=== PATIENT | male | born 1965 | race Caucasian/White ===

== ENCOUNTER 2023-09-07 18:04 | Emergency (ER) | payer BC, SELFPAY ==
[2023-09-07 18:17] VITALS: BP 137/90
[2023-09-07 18:32] LABS: % Basophils 0.4 % (0-2); % Eosinophils 2.1 % (0-6); % Immature Granulocytes 0.3 % (0-0.5); % Lymphocytes 40.3 % (20.5-51.1); % Monocytes 7.5 % (1.7-9.3); % Neutrophils 49.4 % (42.2-75.2); Absolute Eosinophils 0.2 10^3/uL (0-0.7); Absolute Monocytes 0.6 10^3/uL (0.1-0.6); Absolute Neutrophils 3.7 10^3/uL (1.4-6.5); Hematocrit 43.8 % (39.0-52.0); Mean Corp Hgb Conc. 36.5 g/dL (33.0-37.0); Mean Corpuscular Hgb 30.6 pg (27.0-31.0); Mean Corpuscular Volume 83.7 fL (80.0-94.0); Mean Platelet Volume 9.9 fL (7.4-10.4); Nucleated Red Blood Cells % 0 % (-); Platelet Count 263 10^3/uL (130-400); Red Blood Cell Count 5.23 10^6/uL (4.70-6.10); Red Cell Dist. Width 12.3 % (11.5-14.5); White Blood Cell Count 7.5 10^3/uL (4.8-10.8)
[2023-09-07 18:44] LABS: INR 1.07; PT 13.8 Sec (11.4-14.6)
[2023-09-07 18:52] LABS: ALT (SGPT) 35 U/L (0-50); AST (SGOT) 26 U/L (17-59); Albumin 4.7 g/dl (3.5-5.0); Alkaline Phosphatase 53 U/L (38-126); Blood Urea Nitrogen 17 mg/dl (9-20); Carbon Dioxide 25 mmol/L (22-30); Chloride 104 mmol/L (98-107); Glucose 105 mg/dl (70-99); Potassium 4.3 mmol/L (3.5-5.1); Sodium 139 mmol/L (135-145); Total Bilirubin 0.8 mg/dl (0.2-1.3); Total Protein 7.1 g/dl (6.3-8.2); eGFR > 60.00
[2023-09-07 18:58] LABS: Troponin I < 0.012 ng/ml
[2023-09-07 22:52] LABS: Troponin I < 0.012 ng/ml
[2023-09-07 23:26] VITALS: BP 126/91
--- NOTE | 2023-09-07 23:46 | ED.GENMED ---
History of Present Illness
General
Chief Complaint: Chest Pain
Source: patient
Exam Limitations: none
Time Seen by Provider: 09/07/23 23:28
Travel History
Have you had any contact with someone who has COVID-19?: No
Do you have any symptoms of coronavirus? Fever > 100 degrees, chills, cough, shortness of breath, sore throat, loss of taste or smell, muscle aches, or headache?: No
History of Present Illness
History of Present Illness:
See MDM
Past History
Past History
ED Past Medical History: Hypercholesterolemia
ED Past Surgical History: None
Social History
Tobacco: Smoker
Alcohol: Occasional
Family History
Family History: CAD
Phy Exam
Physical Exam
Physical Exam:
See MDM
Scores
Heart Score for Chest Pain Patients
STEMI patient?: No
History: Slightly or Non-Suspicious
ECG: Normal
Age: >45 - <65 years
Risk Factors: 1 or 2 Risk Factors
Troponin: </= Normal Limit
Heart Score for Chest Pain Patients: 2
Heart Score Risk: 2.5% MACE over next 6 weeks
Course
Orders/Labs/Results
Orders:
Orders
09/07/23 18:06
EKG [Electrocardiogram (*1)] Urgent
Reason for Study: Chest Pain
EKG- Treatment ONCE
09/07/23 18:26
Complete Blood Count/With Diff Urgent
Comprehensive Metabolic Panel Urgent
PT/INR [Prothrombin Time] Urgent
Troponin I Urgent
09/07/23 22:10
Electrocardiogram (*1) Urgent
Reason for Study: Chest Pain
EKG- Treatment ONCE
09/07/23 22:21
Troponin I Urgent
Abnormal Lab Results
09/07/23
18:26
Glucose 105 H mg/dl
(70-99)
09/07/23 18:26
09/07/23 18:26
Vital Signs
Initial and Last Documented VS:
Initial Vital Signs
Temp Pulse Resp BP Pulse Ox
98.4 F 83 18 137/90 98
09/07/23 18:17 09/07/23 18:17 09/07/23 18:17 09/07/23 18:17 09/07/23 18:17
Last Documented Vital Signs
Temp Pulse Resp BP Pulse Ox
98.4 F 60 17 126/91 99
09/07/23 18:17 09/07/23 23:26 09/07/23 23:26 09/07/23 23:26 09/07/23 23:26
MDM/Problems Addressed
Differential Diagnosis Includes:
HPI and MDM Narrative:
57-year-old male presenting for evaluation of intermittent chest pain. He noticed it over the past few days. He initially noticed while in the car. He developed a sharp pain in his left chest into his left armpit. Did not last very long. Over
the past several days, he noticed intermittent pain. It is not worse with exertion or position. It appears random.
On exam, he is well-appearing nontoxic. On my evaluation, the blood work was already obtained showing troponin negative x 2. EKG x 2 also negative. Patient is currently symptom-free which goes against alternative diagnoses such as PE,
pneumothorax or aortic dissection. I had a long discussion with the patient and he feels comfortable going home. Will place on cardiac callback tracker
Physical exam
General: Well appearing and non-toxic
HEENT: protecting airway
Neck: appears supple
CV: No evidence of cyanosis. Regular rate and rhythm
Resp: No accessory muscle use. Lungs clear
Abd: Non-distended
Extremities: No deformities
Neuro: alert
Psych: Normal affect
Skin: Intact
Problems Addressed including Acute and Chronic Conditions affecting care:
1. Chest pain
Acuity: acute
Prognosis: stable
Details: Given no symptoms with exertion with negative troponin and negative EKG x 2, doubt ACS
Differential Diagnosis (but not limited to): Noncardiac chest pain, ACS, muscle strain
Testing considered: D-dimer but patient neither tachycardic nor hypoxic
Drug therapy (if applicable): OTC meds, please see d/c instruction regarding Rx drugs
Amount and/or Complexity of Data Reviewed
Clinical info obtained from: Patient
External data reviewed: N/A
Labs I independently reviewed (but not limited to): Troponin negative x 2
Radiology: N/A
Pulse Ox: not hypoxic
EKG independently reviewed: Sinus rhythm, normal axis, no STEMI
Radio Machinist: N/A
Critical Care: N/A
Risk of Complication:
Social Determinants of health: Good social support
Discussed with other providers: N/A
Escalation of Care includes Admit/Obs: After being observed in the Emergency Department, pt stable for discharge.
Occasional wrong word or 'sound a like' substitutions may have occurred due to the inherent limitations of voice recognition software. Read the chart carefully and recognize, using context, where substitutions have occurred.
*Critical Care Note
Total Time (30-74mins, 75-104mins- exclusive of procedures): Not Applicable
ED Attending Note
-
Portions of this chart may have been created with voice recognition software.� Occasional wrong word or��sound alike� substitutions may have occurred due to the inherent limitations of voice recognition software.
Discharge Plan
Departure
Patient Disposition: Home (Routine Discharge)
Date of Disposition: 09/07/23
Time of Disposition: 23:46
Patient with high blood pressure during this ER visit?: No
Discharge Problem:
Chest pain
Instructions: Chest Pain CBC Follow Up
Prescriptions:
No Action
ascorbic acid (vitamin C) [Vitamin C] 500 MG tablet
1,000 mg PO BID Qty: 56 0RF
Rx Instructions:
Take 1,000 mg twice a day for 14 days
zinc sulfate 220 MG capsule
220 mg PO DAILY Qty: 14 0RF
Rx Instructions:
Take 220 mg daily for 14 days
cholecalciferol (vitamin D3) 1,000 UNITS tablet
2,000 units PO DAILY Qty: 28 0RF
Rx Instructions:
Take 2,000 units daily for 14 days
Referrals:
Katherine Rodriguez MD [Active] -
Activity Restrictions/Additional Instructions:
Please return for any worsening symptoms.
You may return at any time if you have further concerns.
Please follow up with your doctor at the first available appointment, preferably this week.
You were placed on the cardiac callback tracker. Someone from their office should call you in the next few days. If you do not hear from them in the next few days, please give them a call.
Thank you for choosing [facility].
Interventions
Interventions:
*Risk Screen - Suicide Last Done: 09/07/23 18:17
*General Assessment Last Done: 09/07/23 18:17
*Neglect/Abuse Screening Last Done: 09/07/23 18:17
*ED COVID-19 Vaccine History Last Done: 09/07/23 18:17
ED- Cardiac Assessment Last Done: 09/07/23 23:30
Discharge Date and Time
Print Language: TAMAZIGHT
== END 2023-09-07 23:58 | disposition home or self-care (01) ==
LOC: EMR 18:04
PROVIDERS: Emergency Medicine; EMERGENCY PHYSICIAN Student in an Organized Health Care Education/Training Program; FAMILY PHYSICIAN Family Medicine
DX: R07.9 Chest pain, unspecified (principal); F17.200 Nicotine dependence, unspecified, uncomplicated
CPT/HCPCS: 99284; 80053; 84484; 85025; 85610; 93005

== ENCOUNTER → 2023-10-01 07:16 | Outpatient (REF) | payer BC, SELFPAY | LOC: HWRCS 07:16 | PROVIDERS: ATTENDING PHYSICIAN Internal Medicine; FAMILY PHYSICIAN Family Medicine | DX: R07.9 Chest pain, unspecified (principal) | CPT/HCPCS: 93306 ==

== ENCOUNTER 2023-10-02 11:19 | Day surgery (SDC) | payer BC, SELFPAY ==
[2023-10-02] VITALS (15 sets, daily range): BP systolic 105–140; BP diastolic 72–106; BMI 29.5
[2023-10-02] MEDS: NSS 304 ML IV (12:33)
--- NOTE | 2023-10-02 14:41 | ITS.CL.CATH ---
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
Cardiac Catheterization
Procedure Report:
CARDIAC CATHETERIZATION REPORT
Date of Procedure: 10/02/2023
Referring: Elier Davis MD
Indication: Chest pain with significantly elevated coronary calcium score
HEMODYNAMIC DATA
AO: 108/60
LV: 108/16
LEFT VENTRICULOGRAPHY: Normal left ventricular wall motion with EF 61%
CORONARY ANGIOGRAPHY
Dominance: Right
Left Main: Normal
LAD: Moderate calcification of the proximal and mid LAD with multiple areas of mild stenosis to 20% in the LAD proper. The major diagonal branches 30% mid stenosis proximal to a bifurcation site.
Circumflex: 30% mid circumflex stenosis distal to the takeoff of OM 2. OM1 is tiny. OM 2 is large with 30% proximal stenosis. OM 3 is small. The circumflex terminates with a single medium sized left posterolateral branch
RCA: Large dominant vessel with mild luminal irregularities
Closure Device: None the procedure was performed via the right radial artery
Radiation (mGy): 487
DAP (cm2.Gy): 47.8
Fluoroscopy time: 5.6 minutes
CONCLUSIONS
1: Normal left ventricular wall motion with EF 61%
2: Mild CAD
3. Continue daily aspirin and statin to achieve LDL less than 70 along with other efforts at risk factor modification
4. Trial of PPI for possible GERD like symptoms
Copy to: Elier aDvis MD, Dorothy Chowdhury MD
Fabricio Bush MD, [facility], [facility]
== END 2023-10-02 17:40 | disposition home or self-care (01) ==
LOC: CATH 11:19
PROVIDERS: ATTENDING PHYSICIAN Internal Medicine Cardiovascular Disease; FAMILY PHYSICIAN Family Medicine; OTHER PHYSICIAN Internal Medicine
DX: Z79.82 Long term (current) use of aspirin (principal); R07.9 Chest pain, unspecified; I25.10 Atherosclerotic heart disease of native coronary artery without angina pectoris; I25.84 Coronary atherosclerosis due to calcified coronary lesion
CPT/HCPCS: 93458; C1894; Q9967